=== PATIENT | female | born 1995 | race Caucasian/White ===

== ENCOUNTER 2016-10-22 13:49 | Emergency (ER) | payer OTHER ==
[~2016-10-22] VITALS: Ht 165.1 cm; Wt 57.2 kg
[~2016-10-22 13:49] MED LIST: ALYACEN PO; ANTIVERT 25 MG25 MG PO; AUGMENTIN 875-1 EACH PO; BACTRIM DS 8001 TAB PO; BACTRIM DS TAB1 EACH PO; CIPRO250 M1 PO; IBUPROFEN800 M1 PO; LIDOCAINE VISC100 M2 PO; MACROBID100 MG PO; MOTRIN 600 MG600 MG PO; ORTHO-NOVUM 7-1 EACH PO; PYRIDIUM100 M1 PO; PYRIDIUM100 MG PO; PYRIDIUM200 M1 PO; RANITIDINE150 MG PO; SERTRALINE HCL25 MG PO; TRAMADOL HCL50 M1 PO; VALIUM2 M1 PO; VESICARE10 MG PO; ZOFRAN4 MG PO
[2016-10-22 14:01] VITALS: BP 119/85
[2016-10-22 15:02] LABS: ABSOLUTE BASOPHIL COUNT 0 /CUMM (0.0-0.2); ABSOLUTE EOSINOPHIL COUNT 0.1 /CUMM (0.0-0.7); ABSOLUTE GRANULOCYTE CT 4.6 /CUMM (1.4-6.5); ABSOLUTE LYMPH COUNT 1.7 /CUMM (1.2-3.4); ABSOLUTE MONOCYTE COUNT 0.6 /CUMM (0.10-0.60); BASOPHIL % 0.3 % (0.0-2.0); EOSINOPHIL % 1.7 % (0-5); GRANULOCYTE % 65.4 % (42.2-75.2); HEMATOCRIT 37.5 % (37-47); MEAN CORPUSCULAR HGB 30.2 PG (27.0-31.0); MEAN CORPUSCULAR HGB CONC 33.7 G/DL (33.0-37.0); MEAN CORPUSCULAR VOLUME 89.7 FL (81.0-99.0); MEAN PLATELET VOLUME 7.5 FL (7.4-10.4); PLATELET COUNT 291 /CUMM (130-400); RBC DISTRIBUTION WIDTH 13.5 % (11.5-14.5); RED BLOOD CELL CT 4.18 /CUMM (4.20-5.40)
--- NOTE | 2016-10-22 16:21 | ED GI/GU/ABDOMINAL COMPLAINT ---
History of Present Illness General Chief Complaint: Nausea, Vomiting, Diarrhea Stated Complaint: DIARRHEA Source: patient Exam Limitations: no limitations Vital Signs & Intake/Output Vital Signs & Intake/Output Vital Signs Date Time Temp Pulse Resp B/P Pulse O2 O2 Flow FiO2 Ox Delivery Rate 10/22 1401 96.2 98 16 119/85 95 Room Air Allergies Coded Allergies: cyclobenzaprine (From FLEXERIL) (Intermediate, SHAKING 08/14/16) Uncoded Allergies: PERMANENT MARKER (FACIAL SWELLING 04/14/14) Reconcile Medications Amoxicillin/Potassium Clav (Augmentin 875-125 Tablet) 875 MG-125 MG TABLET 1 TAB PO BID CELLULITIS Ciprofloxacin HCl (Cipro) 250 MG TABLET 1 TAB PO BID UTI Diazepam (Valium) 2 MG TABLET 1 TAB PO DAILY TMJ Ibuprofen 800 MG TABLET 1 TAB PO Q8 PRN PAIN Norethindrone-Ethinyl Estrad (Ortho-Novum 7-7-7-28 Tablet) 1 EACH TABLET 1 TAB PO DAILY CONTROL (Reported) Phenazopyridine HCl (Pyridium) 200 MG TABLET 1 TAB PO TID DYSURIA Sertraline HCl 25 MG TABLET 1 TAB PO DAILY MENTAL HEALTH (Reported) Solifenacin Succinate (Vesicare) 10 MG TABLET 1 TAB PO DAILY UNKNOWN ( Reported) Sulfamethoxazole/Trimethoprim (Bactrim Ds Tablet) 1 EACH TABLET 1 TAB PO BID INFECTION Sulfamethoxazole/Trimethoprim (Bactrim Ds Tablet) 1 EACH TABLET 1 TAB PO Q12 UTI Tramadol HCl 50 MG TABLET 1 TAB PO BIDP PRN PAIN Tramadol HCl 50 MG TABLET 1-2 TAB PO Q6 PRN pain Triage Note: 21 Y/O FEMALE C/O "NOT FEELING WELL" FOR "A FEW WEEKS". STATES SHE HAS BEEN HAVING INTERMITTENT ABDOMINAL PAIN, HEADACHES AND DIARRHEA. DENIES N/V. DENIES URINARY SYMPTOMS. AFEBRILE. Triage Nurses Notes Reviewed? yes ? N Is pt currently ? No HPI: 21-year-old female with multiple medical complaints. She states for the last 3 weeks she's been having intermittent crampy abdominal pain which is lower abdominal region, nausea, several episodes of diarrhea. She was seen by her primary care doctor for this who felt as though it would resolve on its own. She denies any urinary symptoms however patient has a"bladder condition" in which she has abnormal bladder function and gets pain after urinating and cramping pressure sensation. This is unchanged from her baseline. She is eating and drinking normally has a normal appetite, has no fever or flulike illness. No previous abdominal surgery. She is sexually active with 1 partner over the last 7 years, she is on control. She denies any abnormal vaginal discharge, she had an abnormal menstrual period last month that only lasted 3 days, she took 3 home testS which were negative per patient (VANITA WATKINS) Past History Travel History Traveled to [place] past 21 day No Medical History Any Pertinent Medical History? see below for history Neurological: NONE EENT: left sensorineural hearing loss TMJ Cardiovascular: NONE Respiratory: NONE Gastrointestinal: NONE Hepatic: NONE Renal: BLADDER SPASMS Musculoskeletal: NONE Psychiatric: anxiety, depression, PTSD learning disability Endocrine: NONE Blood Disorders: NONE Cancer(s): NONE Tetanus Vaccine: 04/07/14 Surgical History Surgical History: non-contributory Psychosocial History What is your primary language Swedish Tobacco Use: Never used Family History Family History, If Any: MOTHER FH: seizures grandfather FH: diabetes mellitus Hx Contributory? No (VANITA WATKINS) Review of Systems Review of Systems Constitutional: Reports: see HPI. EENTM: Reports: no symptoms. Respiratory: Reports: no symptoms. Cardiovascular: Reports: no symptoms. GI: Reports: see HPI. Genitourinary: Reports: see HPI. Musculoskeletal: Reports: no symptoms. Skin: Reports: no symptoms. Neurological/Psychological: Reports: no symptoms. Hematologic/Endocrine: Reports: no symptoms. Immunologic/Allergic: Reports: no symptoms. All Other Systems: Reviewed and Negative (VANITA WATKINS) Physical Exam Physical Exam Respiratory: normal breath sounds, chest non-tender, no respiratory distress Cardiovascular: regular rate/rhythm Gastrointestinal: normal bowel sounds, soft, non-tender, no organomegaly Comments: Well-developed well-nourished no apparent distress. HEENT: Atraumatic, extraocular motion intact Neck: Supple, no lymphadenopathy Back: Nontender Respiratory: No respiratory distress Extremities: No edema, full range of motion Neuro: Alert and oriented x3 Psych: Mood affect normal, normal memory normal judgment. Skin: Warm and dry, no rash on exposed skin Core Measures ACS in differential dx? No Severe Sepsis Present: No Septic Shock Present: No (VANIAT WATKINS) Progress Differential Diagnosis: AAA, AMI, appendicitis, biliary colic, bowel obstruction , colon cancer, cholecystitis, diverticulitis, ectopic , endometritis, esophageal varices, gastritis, hepatitis, hernia, hemorrhoids, ischemic bowel, inflamm bowel dis, intrauterine , kidney stone, Suzanne-Chitra tear, ovarian cyst, ovarian torsion, pancreatitis, PID/cervicitis, peptic ulcer, PUD/ GERD, perforated viscous, SBO, threatened AB, UTI/pyelo Plan of Care: Orders Procedure Date/time Status Add-on Test (ER Only) 10/22 1652 Active CULTURE,URINE 10/22 1618 Active URINALYSIS 10/22 161 Complete Add-on Test (ER Only) 10/22 1601 Active HUMAN BETA HCG SCREEN 10/22 1446 Complete COMPREHENSIVE METABOLIC PANEL 10/22 1427 Complete CBC WITHOUT DIFFERENTIAL 10/22 1427 Complete Laboratory Tests 10/22/16 161: Urine Color YEL, Urine Clarity HAZY H, Urine pH 7.0, Ur Specific [place] 1.020, Urine Protein TRACE H, Urine Ketones TRACE H, Urine Nitrite NEG, Urine Bilirubin NEG, Urine Urobilinogen 0.2, Ur Leukocyte Esterase SMALL H, Ur Microscopic SEDIMENT EXAMINED, Urine WBC 3-5 H, Ur Epithelial Cells MANY H, Urine Mucus MANY H, Urine Hemoglobin NEG, Urine Glucose NEG 10/22/16 1446: Anion Gap 11, Estimated GFR > 60, BUN/Creatinine Ratio 15.0, Glucose 93, Calcium 9.6, Total Bilirubin 0.4, AST 20, ALT 27, Alkaline Phosphatase 51, Total Protein 7.5, Albumin 4.3, Globulin 3.2, Albumin/Globulin Ratio 1.3, Total Beta HCG NEGATIVE, CBC w Diff NO MAN DIFF REQ, RBC 4.18 L, MCV 89.7, MCH 30.2, RDW 13.5, MPV 7.5, Gran % 65.4, Lymphocytes % 24.6, Monocytes % 8.0, Eosinophils % 1.7, Basophils % 0.3, Absolute Granulocytes 4.6, Absolute Lymphocytes 1.7, Absolute Monocytes 0.6, Absolute Eosinophils 0.1, Absolute Basophils 0, PUBS MCHC 33.7 Microbiology 10/22 1617 URINE ROUT: Urine Culture - RECD Initial ED EKG: none Comments: Possible early urinary tract infection, we'll place on Cipro, do not feel the patient requires any imaging studies at this time. She will return with worsening abdominal pain nausea vomiting or fever (VANITA WATKINS) Departure Departure Disposition: HOME OR SELF CARE Condition: Stable Clinical Impression Primary Impression: UTI (urinary tract infection) Qualifiers: Urinary tract infection type: acute cystitis Hematuria presence: without hematuria Qualified Code: N30.00 - Acute cystitis without hematuria Referrals: DOMENIC MICHEL MD (PCP/Family) Additional Instructions: Take antibiotics as directed. Take Motrin and Tylenol for fever and pain. Return with worsening fever, flulike illness, nausea vomiting or back pain. Return if you are unable to keep fluids down. Departure Forms: Customer Survey General Discharge Information Prescriptions: Current Visit Scripts Ciprofloxacin HCl (Cipro) 1 TAB PO BID #6 TAB (VANITA WATKINS) PA/CHIEF TECHNICIAN Co-Sign Statement Statement: ED Attending supervision documentation- [] I saw and evaluated the patient. I have also reviewed all the pertinent lab results and diagnostic results. I agree with the findings and the plan of care as documented in the PA's/CHIEF TECHNICIAN's documentation. [X] I have reviewed the ED Record and agree with the PA's/CHIEF TECHNICIAN's documentation. [] Additions or exceptions (if any) to the PAs/CHIEF TECHNICIAN's note and plan are summarized below: [] (CHADD CORDERO,ANAMIKA [place])
[2016-10-22] MEDS ORDERED: CIPRO250 M1 PO (16:51)
== END 2016-10-22 15:00 ==
LOC: ERH 13:49
PROVIDERS: Emergency Medicine
DX: N39.0 Urinary tract infection, site not specified (principal); R10.9 Unspecified abdominal pain
CPT/HCPCS: 81001; 87086

== ENCOUNTER → 2017-01-27 | Day surgery (SDC) | payer OTHER ==
[~2017-01-27] VITALS: Ht 162.6 cm; Wt 54.4 kg
--- NOTE | 2017-01-27 11:35 | Operative Report ---
Operative/Inv Procedure Report Surgery Date: 01/27/17 Name of Procedure: interstim stage 1 and 2 Pre-Operative Diagnosis: voiding dysfunction, urgency and frequency Post-Operative Diagnosis: same Estimated Blood Loss: less than 50ml Surgeon/Commanding Officer Garage: VIANEY PERDOMO MD Anesthesia: local monitored anesthesi Implants: interstim lead and battery Drains: none Specimens: none Complications: none Condition: stable Operative Indication: voiding dysfunction and urgency and frequency Operative/Procedure Note Note: This is an operative dictation on patient Sammi Hoffman. She was consented for InterStim stage I and 2. The risks benefits and alternatives of the surgery were given. She is a long history of voiding dysfunction urgency and frequency. Patient was taken to the operating room placed on the operating table in the prone position. She was given IV antibiotics after timeout was performed. She was given light IV sedation to be responsive to my questions during the procedure. Patient was prepped and draped in the standard sterile fashion using ChloraPrep. The fluoroscopy unit was brought in and her anatomy was delineated and marked out on her back. 1% lidocaine was infiltrated into the area 9 cm superior to the coxxyx and 2 cm lateral to the spine on the left side. This was seen to too inferior. 2 cm above this site was then infiltrated with lidocaine and the needle was placed using fluoroscopic guidance to reach the S3 nerve. The needle was stimulated and was seen to be the responsive with vaginal sensation however at a level of around 3. As result, the right side was also addressed and the needle was stimulated and she had excellent response from her great toe, mini as well as vaginal sensation. The guidewire was then placed and an incision was made. The dilator was then placed and was seen to be in good position fluoroscopically. The lead was then placed with the curved stylette. It was seen to be in good position and was then stimulated at the 4 sites. Each site provided excellent response again from the great toe, mini and vaginal sensation. The lateral positioning of the lead with excellent and an AP view was also obtained and had a nice curved positioning we like to see in the S3 region. The patient was then placed into a deeper the sedated state so she would no longer feel any discomfort from this procedure. The stylet was removed and the T dilator was then used to bring the lead to the created pocket. The pocket was created lateral and superior to the lead site on the buttock area. The pocket was easily created and all bleeding was stopped and the battery was placed into this pocket after the lead was inserted into the battery and tightened with the hex wrench. It was seen to be a good fit the battery was then tested for optimal function and was seen to be working very well. The incision was closed using interrupted 3-0 Vicryl sutures subcutaneously. This was followed by 4-0 Monocryl running suture and the subcutaneous layer. Steri- Strips were applied followed by an OpSite. The needle insertion site was closed with Dermabond. Patient was cleaned of the prep solution. She tolerated the procedure well. The sponge and needle count were correct at the end of the case. Findings: Excellent response from the right placed InterStim lead. Right great toe response and rectal mnii response and vaginal sensation response from the patient Discharge Disposition: Same Day Admissions
--- NOTE | 2017-01-28 17:10 | RADIOLOGY REPORT ---
EXAMINATION: XR LUMBOSACRAL SPINE CLINICAL INFORMATION: Insertion of stimulator. COMPARISON: None TECHNIQUE: There are 4 digital images obtained during the procedure. FINDINGS/IMPRESSION: The initial 2 images reveals a needle inserted through right sacral foramina. The subsequent 2 images reveal a neurostimulator insertion in the presacral space. Fluoroscopy was provided to Dr. Williams Liu during procedure. Fluoroscopy time: 26 seconds. Total images: 4.
== END ==
LOC: STS 03:27
DX: R39.15 Urgency of urination (principal); R35.0 Frequency of micturition; R39.198 Other difficulties with micturition; Z87.440 Personal history of urinary (tract) infections; N30.10 Interstitial cystitis (chronic) without hematuria
CPT/HCPCS: 72100; 81025; C1778; C1787; C1894; J0131; J0690; J2250

== ENCOUNTER 2017-12-29 21:20 | Emergency (ER) | payer OTHER ==
[~2017-12-29] VITALS: Ht 165.1 cm; Wt 63.5 kg
[~2017-12-29 21:20] MED LIST changes: +CIPRO500 M1 PO; +MELOXICAM15 M1 PO; +SERTRALINE HCL100 MG PO
--- NOTE | 2017-12-29 22:38 | ED GI/GU/ABDOMINAL COMPLAINT ---
History of Present Illness General Chief Complaint: Nausea, Vomiting, Diarrhea Stated Complaint: NVD Source: patient Exam Limitations: no limitations Vital Signs & Intake/Output Vital Signs & Intake/Output Vital Signs Date Time Temp Pulse Resp B/P B/P Pulse O2 O2 Flow FiO2 Mean Ox Delivery Rate 12/29 2123 96.8 105 18 123/87 98 Room Air Allergies Coded Allergies: cyclobenzaprine (From FLEXERIL) (Intermediate, SHAKING 01/24/17) Uncoded Allergies: PERMANENT MARKER (FACIAL SWELLING 04/14/14) Reconcile Medications Ciprofloxacin HCl (Cipro) 500 MG TABLET 1 TAB PO BID uti Meloxicam 15 MG TABLET 1 TAB PO DAILY PRN pain Norethindrone-Ethinyl Estrad (Ortho-Novum 7-7-7-28 Tablet) 1 EACH TABLET 1 TAB PO DAILY CONTROL (Reported) Sertraline HCl 100 MG TABLET 1 TAB PO DAILY MENTAL HEALTH (Reported) Triage Note: PT TO TRIAGE C/O N/D X 2 DAYS. PT DENIES SICK CONTACTS OR EATING ANYTHING OUT OF THE ORDINARY. PT REPORTS RECENTLY DX WITH BIPOLAR AND PUT ON LATUDA AND GUANFACINE A COUPLE DAYS AGO PER PT. Triage Nurses Notes Reviewed? yes ? N Is pt currently ? No HPI: 22F PMH bipolar disorder presenting with 2 days of watery diarrhea, tenesmus, and salvador-umbilical cramping. No sick contacts, recent travel, or outdoor exposure. Started Guanfacine and Latuda a week ago. Denies fever, chills, chest pain, SOB, dysuria. Poor PO intake due to nausea and feels dehydrated. Past History Travel History Traveled to [place] past 21 day No Medical History Any Pertinent Medical History? see below for history Neurological: NONE EENT: left sensorineural hearing loss TMJ Cardiovascular: NONE Respiratory: NONE Gastrointestinal: NONE Hepatic: NONE Renal: BLADDER SPASMS Musculoskeletal: NONE Psychiatric: anxiety, depression, PTSD learning disability Endocrine: NONE Blood Disorders: NONE Cancer(s): NONE Tetanus Vaccine: 04/07/14 Surgical History Surgical History: non-contributory Psychosocial History What is your primary language Belarusian Tobacco Use: Never used Family History Family History, If Any: MOTHER FH: seizures grandfather FH: diabetes mellitus Hx Contributory? No Review of Systems Review of Systems Constitutional: Reports: no symptoms. EENTM: Reports: no symptoms. Respiratory: Reports: no symptoms. Cardiovascular: Reports: no symptoms. GI: Reports: no symptoms. Genitourinary: Reports: no symptoms. Musculoskeletal: Reports: no symptoms. Skin: Reports: no symptoms. Neurological/Psychological: Reports: no symptoms. Hematologic/Endocrine: Reports: no symptoms. Immunologic/Allergic: Reports: no symptoms. All Other Systems: Reviewed and Negative Physical Exam Physical Exam General Appearance: well developed/nourished, no apparent distress Head: atraumatic, normal appearance Eyes: Bilateral: normal appearance. Ears, Nose, Throat, Mouth: hearing grossly normal, dry MM Neck: normal inspection, supple, full range of motion Respiratory: normal breath sounds, no respiratory distress Cardiovascular: regular rate/rhythm Gastrointestinal: soft, tender periumbilically, no rebound or guarding Back: normal inspection, normal range of motion Extremities: normal range of motion Neurologic/Psych: awake, alert, oriented x 3, normal mood/affect Skin: intact, normal color, warm/dry Core Measures ACS in differential dx? No Sepsis Present: No Sepsis Focused Exam Completed? No Progress Differential Diagnosis: AAA, AMI, appendicitis, biliary colic, bowel obstruction , colon cancer, cholecystitis, diverticulitis, ectopic , endometritis, esophageal varices, gastritis, hepatitis, hernia, hemorrhoids, ischemic bowel, inflamm bowel dis, intrauterine , kidney stone, Suzanne-Chitra tear, ovarian cyst, ovarian torsion, pancreatitis, PID/cervicitis, peptic ulcer, PUD/ GERD, perforated viscous, SBO, threatened AB, UTI/pyelo Plan of Care: Orders Procedure Date/time Status LIPASE 12/29 2221 Complete HEPATIC FUNCTION PANEL 12/29 2221 Complete HUMAN BETA HCG SCREEN 12/29 2221 Complete CBC WITHOUT DIFFERENTIAL 12/29 2221 Complete BASIC METABOLIC PANEL 12/29 2221 Complete AMYLASE 12/29 2221 Complete Current Medications Sig/Ambrosio Start time Last Medication Dose Stop Time Status Admin Potassium Chloride 20 MEQ ONCE ONE 12/29 233 UNVr (Klor) 12/29 233 Sodium Chloride 1,000 ML BOLUS ONE 12/29 224 CAN (Normal Saline 0.9%) 12/29 2344 Laboratory Tests 12/29/172244: Anion Gap 13, Estimated GFR > 60, BUN/Creatinine Ratio 11.4, Glucose 84, Calcium 8.8, Total Bilirubin 0.4, Direct Bilirubin 0.3, AST 32, ALT 37, Alkaline Phosphatase 63, Total Protein 6.9, Albumin 4.0, Amylase 40, Lipase 56, Total Beta HCG NEGATIVE, CBC w Diff NO MAN DIFF REQ, RBC 4.42, MCV 88.1, MCH 29.6, MCHC 33.6, RDW 13.3, MPV 6.9 L, Gran % 61.8, Lymphocytes % 26.1, Monocytes % 9.7 H, Eosinophils % 2.0, Basophils % 0.4, Absolute Granulocytes 4.6, Absolute Lymphocytes 1.9, Absolute Monocytes 0.7 H, Absolute Eosinophils 0.1, Absolute Basophils 0 Initial ED EKG: none Departure Departure Disposition: HOME OR SELF CARE Condition: Stable Clinical Impression Primary Impression: Acute gastroenteritis Secondary Impressions: Hypokalemia due to inadequate potassium intake Referrals: Eve CORDERO,Jackson Aviles (PCP/Family) Additional Instructions: Follow up with your PCP. Drink plenty of water. You can drink oral rehydration solutions such as Pedialyte that you can get at a pharmacy. You can use Immodium once a day to slow down the diarrhea. If you have any new or worsening symptoms return to ER. Departure Forms: Customer Survey General Discharge Information
[2017-12-29 22:49] LABS: ABSOLUTE BASOPHIL COUNT 0 /CUMM (0.0-0.2); ABSOLUTE EOSINOPHIL COUNT 0.1 /CUMM (0.0-0.7); ABSOLUTE GRANULOCYTE CT 4.6 /CUMM (1.4-6.5); ABSOLUTE LYMPH COUNT 1.9 /CUMM (1.2-3.4); ABSOLUTE MONOCYTE COUNT 0.7 /CUMM (0.10-0.60); BASOPHIL % 0.4 % (0.0-2.0); GRANULOCYTE % 61.8 % (42.2-75.2); MEAN CORPUSCULAR HGB 29.6 PG (27.0-31.0); MEAN CORPUSCULAR HGB CONC 33.6 G/DL (33.0-37.0); MEAN CORPUSCULAR VOLUME 88.1 FL (81.0-99.0); MEAN PLATELET VOLUME 6.9 FL (7.4-10.4); PLATELET COUNT 291 /CUMM (130-400); RBC DISTRIBUTION WIDTH 13.3 % (11.5-14.5); RED BLOOD CELL CT 4.42 /CUMM (4.20-5.40); WHITE BLOOD CELL COUNT 7.4 /CUMM (4.8-10.8)
[2017-12-29 23:30] VITALS: BP 114/71
== END 2017-12-29 23:32 ==
LOC: ERH 21:20
PROVIDERS: Pediatrics
DX: K52.9 Noninfective gastroenteritis and colitis, unspecified (principal); E87.6 Hypokalemia

== ENCOUNTER 2018-01-31 22:39 | Emergency (ER) | payer OTHER ==
[2018-01-31 22:42] VITALS: BP 122/85
[2018-01-31] MEDS ORDERED: LATUDA20 M1 PO (22:45)
--- NOTE | 2018-01-31 23:13 | ED ANKLE/FOOT INJURY COMPLAINT ---
History of Present Illness General Chief Complaint: Lower Extremity Problems Stated Complaint: PT RT FOOT HAS PAIN Source: patient, old records Exam Limitations: no limitations Vital Signs & Intake/Output Vital Signs & Intake/Output Vital Signs Date Time Temp Pulse Resp B/P B/P Pulse O2 O2 Flow FiO2 Mean Ox Delivery Rate 01/31 2242 96.7 96 16 122/85 96 Room Air Allergies Coded Allergies: cyclobenzaprine (From FLEXERIL) (Intermediate, SHAKING 01/24/17) Uncoded Allergies: PERMANENT MARKER (FACIAL SWELLING 04/14/14) Reconcile Medications Lurasidone HCl (Latuda) 20 MG TABLET 1 TAB PO DAILY BIPOLAR (Reported) Norethindrone-Ethinyl Estrad (Ortho-Novum 7-7-7-28 Tablet) 1 EACH TABLET 1 TAB PO DAILY CONTROL (Reported) Sertraline HCl 100 MG TABLET 1 TAB PO DAILY MENTAL HEALTH (Reported) Triage Note: PER PT PAIN TO RT FOOT SINCE LAST NIGHT, UST STARTED HURTING A FEW MINUTES AGO Triage Nurses Notes Reviewed? yes : No Patient currently breastfeeds: No HPI: Patient states that yesterday she caught her right foot in a door. Patient was doing fine until earlier this evening when the pain began. The pain is a throbbing pain over the lateral aspect of her foot. The pain increases with ambulation. There is no radiation. She rates the pain at 8 out of 10. Patient has no other complaints. Past History Travel History Traveled to [place] past 21 day No Medical History Any Pertinent Medical History? see below for history Neurological: NONE EENT: left sensorineural hearing loss TMJ Cardiovascular: NONE Respiratory: NONE Gastrointestinal: NONE Hepatic: NONE Renal: BLADDER SPASMS Musculoskeletal: NONE Psychiatric: anxiety, bipolar disease, depression, PTSD learning disability Endocrine: NONE Blood Disorders: NONE Cancer(s): NONE Tetanus Vaccine: 04/07/14 Surgical History Surgical History: non-contributory Psychosocial History What is your primary language Citizen [place] Tobacco Use: Never used ETOH Use: occasional use Illicit Drug Use: denies illicit drug use Family History Family History, If Any: MOTHER FH: seizures grandfather FH: diabetes mellitus Hx Contributory? No Review of Systems Review of Systems Constitutional: Reports: no symptoms. Respiratory: Reports: no symptoms. Cardiovascular: Reports: no symptoms. Musculoskeletal: Reports: see HPI. Neurological/Psychological: Reports: no symptoms. Immunologic/Allergic: Reports: no symptoms. Physical Exam Physical Exam General Appearance: well developed/nourished, alert, awake, anxious, mild distress Head: atraumatic Eyes: Bilateral: PERRL, EOMI. Neck: normal inspection, supple Leg/Knee/Thigh Left: normal range of motion, normal inspection Leg/Knee/Thigh Right: normal range of motion, normal inspection Foot Right: pain Neuro/Vascular: normal motor function, normal sensation Tendon: normal tendon function Psychiatric: awake, alert, oriented x 3 Progress Differential Diagnosis: fracture, sprain, contusion Plan of Care: Orders Procedure Date/time Status XRY-FOOT COMPLETE, RIGHT 02/01 2312 Active Diagnostic Imaging: Viewed by Me: Radiology Read. Discussed w/RAD: Radiology Read. Radiology Impression: PATIENT: TALIA SIDDIQUI PRESENT AGE: 22 PATIENT ACCOUNT NO: [id number] : 93 LOCATION: [facility] ORDERING PHYSICIAN: Jackson Aleman MD SERVICE DATE: 01/31/18 EXAM TYPE: RAD - XRY-FOOT COMPLETE, R EXAMINATION: XR FOOT, RIGHT CLINICAL INFORMATION: Crush injury. COMPARISON: None TECHNIQUE: AP, lateral, and oblique views of the right foot. FINDINGS: The bones and soft tissues are normal. No fracture. Alignment is anatomic. Joint spaces are maintained. IMPRESSION: Normal right foot. DICTATED BY: Modesto Kirkland MD DATE/TIME DICTATED:01/31/182341 GENERAL STUDIES PROGRAM CHAIR:KANCHAN DATE/TIME TRANSCRIBED:01/31/182341 CONFIDENTIAL, DO NOT COPY WITHOUT APPROPRIATE AUTHORIZATION. <Electronically signed in Other Vendor System> SIGNED BY: Modesto Kirkland MD 01/31/182345 Departure Departure Disposition: HOME OR SELF CARE Condition: Stable Clinical Impression Primary Impression: Contusion of foot, right Referrals: Jackson Prado MD (PCP/Family) Additional Instructions: REUTRN IF SYMPTOMS WORSEN OR FOR ANY CONCERNS Departure Forms: Customer Survey General Discharge Information
--- NOTE | 2018-01-31 23:46 | RADIOLOGY REPORT ---
EXAMINATION: XR FOOT, RIGHT CLINICAL INFORMATION: Crush injury. COMPARISON: None TECHNIQUE: AP, lateral, and oblique views of the right foot. FINDINGS: The bones and soft tissues are normal. No fracture. Alignment is anatomic. Joint spaces are maintained. IMPRESSION: Normal right foot.
== END 2018-01-31 23:54 ==
LOC: ERH 22:39
DX: S90.31XA Contusion of right foot, initial encounter (principal); W23.0XXA Caught, crushed, jammed, or pinched between moving objects, initial encounter; Y92.9 Unspecified place or not applicable; Y93.9 Activity, unspecified
CPT/HCPCS: 73630-RT